=== PATIENT | male | born 1990 | race Caucasian/White ===

== ENCOUNTER 2017-02-24 20:23 | Emergency (ER) | payer BC ==
--- NOTE | 2017-02-24 21:16 | ED ---
Chest Pain HPI - General Chief Complaint: Chest Pain Stated Complaint: chest pain Time Seen by Provider: 02/24/17 21:04 Source: patient Mode of arrival: ambulatory Limitations: no limitations - History of Present Illness Initial Comments: This patient is a 19-year-old man who experienced an episode of chest pain about an hour ago while he was eating. The patient states that the substernal area he felt like a wave of pain that came and went. He states that lasted probably 2 seconds and resolved. He states the following that felt like his arms were heavy for a brief period of time but that has resolved. Patient states that he finished dinner and then cleaned up. He also recalled having a similar episode about 5 days ago and so he decided to be evaluated here. The patient states that he used to smoke but quit a number of months ago. He denied any anginal equivalent, no dyspnea, diaphoresis, nausea or vomiting, palpitations, lightheadedness, or syncope. MD Complaint: chest pain Onset/Timin -: hour(s) Onset: other Pain Location: substernal (Bleeding) Pain Radiation: none Severity: moderate Quality: other (Like a wave) Consistency: now resolved Improves With: nothing Worsens With: nothing Treatments Prior to Arrival: none - Related Data Home Medications Medication Instructions Recorded Confirmed Oxymetazoline 0.05% Nasl [place] 1 spray EA NOSTRIL DAILY PRN 02/24/17 02/24/17 [Afrin 0.05% Nasal [place]] guaiFENesin [Mucinex] 1,200 mg PO DAILY PRN 02/24/17 02/24/17 Allergies Allergy/AdvReac Type Severity Reaction Status Date / Time No Known Allergies Allergy Verified 02/24/17 20:35 Review of Systems ROS Statement: Those systems with pertinent positive or pertinent negative responses have been documented in the HPI. ROS Other: All systems not noted in ROS Statement are negative. Constitutional: Denies: fever, chills Respiratory: Reports: cough (Patient has had about 4-5 days of congestion and cough). Denies: dyspnea, hemoptysis Cardiovascular: Reports: as per HPI, chest pain. Denies: palpitations, dyspnea on exertion, syncope Gastrointestinal: Denies: abdominal pain, nausea, vomiting Genitourinary: Denies: dysuria Musculoskeletal: Denies: back pain Skin: Denies: rash Neurological: Denies: headache EKG Findings - EKG Results: EKG: interpreted by NITZAD, sinus rhythm (Rate 75 bpm), normal axis, normal ST/T Past Medical History Past Medical History: No Reported History History of Any Multi-Drug Resistant Organisms: None Reported Past Surgical History: Appendectomy Past Psychological History: No Psychological Hx Reported Smoking Status: Current some day smoker Past Alcohol Use History: None Reported Past Drug Use History: None Reported General Exam Limitations: no limitations General appearance: alert, in no apparent distress Head exam: Present: atraumatic, normocephalic Eye exam: Present: normal appearance. Absent: scleral icterus, conjunctival injection ENT exam: Present: normal oropharynx Respiratory exam: Present: normal lung sounds bilaterally. Absent: respiratory distress, wheezes, rales, rhonchi, stridor, chest wall tenderness, accessory muscle use, decreased breath sounds, prolonged expiratory Cardiovascular Exam: Present: regular rate, normal rhythm, normal heart sounds. Absent: systolic murmur, diastolic murmur, rubs, gallop GI/Abdominal exam: Present: soft. Absent: distended, tenderness, guarding, rebound, rigid, mass, pulsatile mass, hernia Extremities exam: Present: normal inspection, normal capillary refill. Absent: pedal edema, calf tenderness Back exam: Present: normal inspection. Absent: CVA tenderness (R), CVA tenderness (L) Skin exam: Present: warm, dry, intact, normal color. Absent: rash Course Vital Signs 02/24/17 02/24/17 20:27 22:01 Temperature 99 F 97.8 F Pulse Rate 98 71 Respiratory 18 16 Rate Blood Pressure 174/98 136/68 O2 Sat by Pulse 98 96 Oximetry Chest Pain [facility] patient is a 26-year-old man who had an episode of chest pain lasting 1-2 seconds earlier tonight. Chest x-ray is negative and EKG does not show any acute ischemia and the patient is symptom-free. Given that he has history of smoking, recommended the patient follow-up to have a stress test. Also discussed that he must return should any symptoms recur. Patient understands follow-up plan and return parameters. Disposition Clinical Impression: Chest pain Disposition: HOME SELF-CARE Condition: Good Instructions: Chest Pain (ED) Referrals: None,Stated [REFERRING] - 1-2 days Obdulio Shah MD [STAFF PHYSICIAN] - 1-2 days
--- NOTE | 2017-02-24 21:21 | XR ---
EXAMINATION TYPE: XR chest 2V DATE OF EXAM: 02/24/2017 COMPARISON: NONE HISTORY: Cough TECHNIQUE: Frontal and lateral views of the chest are obtained. FINDINGS: Heart and mediastinum are normal. Lungs are clear. Diaphragm is normal. Bony thorax appear s normal. IMPRESSION: Normal chest.
[2017-02-24 22:02] VITALS: BP 136/68; PULSE 71; RESP 16; TEMP 97.8
== END 2017-02-24 22:07 | disposition home or self-care (01) ==
LOC: EC 20:23
DX: R07.9 Chest pain, unspecified (principal); F17.200 Nicotine dependence, unspecified, uncomplicated
CPT/HCPCS: 71020; 93005; 99285

== ENCOUNTER 2017-04-15 16:55 | Emergency (ER) | payer BC ==
[2017-04-15] MEDS ORDERED: SODIUM CHLORIDE 0.9% 1,000 ML IV ONE (18:22)
[2017-04-15] MEDS ORDERED: MORPHINE SULFATE 5 MG/ML SYRINGE IVP STA (18:22)
[2017-04-15] MEDS ORDERED: RX INFO: IV CONTRAST WAS GIVEN 1 EACH MISC MISCELLANE PRN (18:22)
[2017-04-15 18:35] LABS: Basophils % (A) 0 %; CH 30.3; CHCM 34.4; Eosinophils % (A) 0 %; HCT 49.1 % (39.0-53.0); HDW 2.34; HGB 16.2 gm/dL (13.0-17.5); Luc # (Auto) 0.04; Luc % (Auto) 0; Lymphocytes # (A) 0.6 k/uL (1.0-4.8); Lymphocytes % (A) 6 %; MCH 29.3 pg (25.0-35.0); MCHC 33.1 g/dL (31.0-37.0); MCV 88.5 fL (80.0-100.0); Mean Platelet Volume 7.1; Monocytes # (A) 0.4 k/uL (0-1.0); Monocytes % (A) 3 %; Neutrophils # (A) 10.5 k/uL (1.3-7.7); Neutrophils % (A) 90 %; RBC 5.55 m/uL (4.30-5.90); RDW 14.2 % (11.5-15.5); WBC 11.6 k/uL (3.8-10.6); WBC (Perox) 10.83
[2017-04-15 18:36] LABS: Appearance,Urine Clear (Clear); Bilirubin,Urine Negative (Negative); Glucose,Urine (UA) Negative (Negative); Ketones,Urine Negative (Negative); Leukocyte Esterase,Urine Negative (Negative); Nitrite,Urine Negative (Negative); PH, Urine 5.5 (5.0-8.0); Protein,Urine Trace (Negative); Specific Gravity,Urine 1.028 (1.001-1.035); UA Billing (MACRO vs. MICRO) CHEM; Urobilinogen,Urine <2.0 mg/dL (<2.0)
[2017-04-15 18:47] LABS: ALT 36 U/L (21-72); AST 22 U/L (17-59); Alkaline Phosphatase 63 U/L (38-126); Anion Gap 14 mmol/L; Blood Urea Nitrogen 18 mg/dL (9-20); Calcium 9.6 mg/dL (8.4-10.2); Carbon Dioxide 28 mmol/L (22-30); Chloride 98 mmol/L (98-107); Glucose 101 mg/dL (74-99); Non-African American GFR(MDRD) >60 (>60 ml/min/1.73 sqM); Sodium 140 mmol/L (137-145); Total Bilirubin 1.7 mg/dL (0.2-1.3); Total Protein 7.9 g/dL (6.3-8.2)
[2017-04-15 18:55] LABS: Potassium 4.1 mmol/L (3.5-5.1)
--- NOTE | 2017-04-15 19:28 | CT ---
EXAMINATION TYPE: CT abdomen pelvis w con DATE OF EXAM: 04/15/2017 COMPARISON: 12/15/2011 HISTORY: Abdominal pain and vomiting. CT DLP: 655.2 mGycm. Automated exposure control for dose reduction was used. TECHNIQUE: Helical acquisition of images was performed from the lung bases through the pelvis. CONTRAST: Performed without Oral Contrast and with IV Contrast, patient injected with 100 mL of Omnip aque 300. FINDINGS: LUNG BASES: No significant abnormality is appreciated. LIVER/GB: No significant abnormality is appreciated. PANCREAS: No significant abnormality is seen. SPLEEN: No significant abnormality is seen. ADRENALS: No significant abnormality is seen. KIDNEYS: No significant abnormality is seen. Bilateral simple appearing subcentimeter renal cysts are noted. PERITONEAL SPACES: Negative for mass or fluid collections. ABDOMINAL ADENOPATHY: There is no roderick adenopathy. However, numerous subcentimeter mesenteric lymph nodes are appreciated, and the findings may correlate with a clinical diagnosis of gastroenteritis. REPRODUCTIVE ORGANS: No significant abnormality is seen URINARY BLADDER: No significant abnormality is seen. PELVIC ADENOPATHY: None visualized. OSSEOUS STRUCTURES: No significant abnormality is seen. BOWEL: There appendix currently measures 3 cm in length, at its tip is a 5 mm high attenuation focus . The caliber of the appendix is borderline distended, but the appendix is smoothly defined and the p eriappendiceal fat is normal in appearance. These are likely post operative changes from the appendic itis seen at the time of the 12/15/2011 complicated appendicitis, but clinical corroboration is reques victorino. The remainder of the hollow visceral exam of the abdomen and pelvis is negative. VASCULATURE: Unremarkable. IMPRESSION: NO DEFINITE ACUTE ABDOMINOPELVIC PROCESS. HOWEVER, SMALL BOWEL MESENTERIC SUBCENTIMETER LYMPH NODES AND APPENDICEAL STUMP FINDINGS NOTED, DI SCUSSED.
--- NOTE | 2017-04-15 19:59 | ED ---
Abdominal Pain HPI - General Chief Complaint: Abdominal Pain Stated Complaint: Abd Pain, Blood in vomit Time Seen by Provider: 04/15/17 17:40 Source: patient Mode of arrival: ambulatory Limitations: no limitations - History of Present Illness Initial Comments: 26-year-old male with past medical history of appendicitis with appendectomy presented for evaluation of epigastric abdominal pain with associated nausea and vomiting. He states that the symptoms started around 8: 30 this morning and woke him from sleep. First episode of emesis was stomach contents over the second third contained hematemesis. States he is also been having loose stool. Denies fevers, chills, chest pain, shortness of breath. - Related Data Home Medications Medication Instructions Recorded Confirmed Ibuprofen [Motrin] 400 mg PO Q6HR PRN 04/15/17 04/15/17 Previous Rx's Medication Instructions Recorded Dicyclomine [Bentyl] 20 mg PO QID #20 tablet 04/15/17 Ondansetron Odt [Zofran Odt] 4 mg PO Q8HR PRN #10 tab 04/15/17 Allergies Allergy/AdvReac Type Severity Reaction Status Date / Time No Known Allergies Allergy Verified 04/15/17 18:36 Review of Systems ROS Statement: Those systems with pertinent positive or pertinent negative responses have been documented in the HPI. ROS Other: All systems not noted in ROS Statement are negative. Constitutional: Denies: fever, chills, weakness Eyes: Denies: eye pain, eye discharge ENT: Denies: ear pain, throat pain Respiratory: Denies: cough, dyspnea Cardiovascular: Denies: chest pain, palpitations Endocrine: Denies: fatigue, polydipsia, polyuria Gastrointestinal: Reports: abdominal pain, nausea, vomiting, diarrhea. Denies: constipation, hematemesis, melena Genitourinary: Denies: urgency, dysuria Musculoskeletal: Denies: back pain, arthralgia, myalgia Skin: Denies: rash, lesions Neurological: Denies: headache, weakness Psychiatric: Denies: anxiety, depression Hematological/Lymphatic: Denies: easy bleeding, easy bruising Past Medical History Past Medical History: No Reported History History of Any Multi-Drug Resistant Organisms: None Reported Past Surgical History: Appendectomy Past Psychological History: No Psychological Hx Reported Smoking Status: Current every day smoker Past Alcohol Use History: Occasional Past Drug Use History: Cocaine, Marijuana General Exam Limitations: no limitations General appearance: alert, in no apparent distress Head exam: Present: atraumatic, normocephalic, normal inspection Eye exam: Present: normal appearance, PERRL, EOMI. Absent: scleral icterus, conjunctival injection, periorbital swelling ENT exam: Present: normal exam, mucous membranes moist Neck exam: Present: normal inspection. Absent: tenderness, meningismus, lymphadenopathy Respiratory exam: Present: normal lung sounds bilaterally. Absent: respiratory distress, wheezes, rales, rhonchi, stridor Cardiovascular Exam: Present: normal rhythm, tachycardia, normal heart sounds. Absent: systolic murmur, diastolic murmur, rubs, gallop, clicks GI/Abdominal exam: Present: soft, tenderness (mild epigastric), normal bowel sounds. Absent: distended, guarding, rebound, rigid Rectal exam: Present: deferred Extremities exam: Present: normal inspection, full ROM, normal capillary refill. Absent: tenderness, pedal edema, joint swelling, calf tenderness Back exam: Present: normal inspection Neurological exam: Present: alert, oriented X3, CN II-XII intact Psychiatric exam: Present: normal affect, normal mood Skin exam: Present: warm, dry, intact, normal color. Absent: rash Course Vital Signs 04/15/17 04/15/17 17:26 18:14 Temperature 101.4 F H Pulse Rate 101 H Respiratory 18 19 Rate Blood Pressure 135/76 O2 Sat by Pulse 98 Oximetry Medical Decision Making - Medical Decision Making 26-year-old male with past medical history as noted above presented for evaluation of abdominal pain, nausea vomiting and diarrhea. On physical examination his abdomen is soft and non-peritoneal guarding rigidity or rebound however he does have tenderness to the epigastric abdomen. There is no defect in the ventral wall noted on palpation. Remainder of his physical exam is benign. Given his past medical history of appendicitis with appendectomy which is also followed by a recurrent surgery for inflammation around the stump, we' ll obtain a CT abdomen and pelvis as well as labs and provide IV fluids pain control. CT abdomen and pelvis showed no definite acute abdominal pelvis process. There was small bowel mesenteric subcentimeter lymph nodes and appendiceal stump findings that were concerning for gastroenteritis. Labs revealed no significant abnormalities. On repeat exam the patient has resolution of all symptoms. He was informed of all results and through shared decision making it was determined that he be discharged with instructions to follow-up with his primary care physician but to return to this facility if his symptoms should worsen or persist. The patient acknowledged an understanding of all formation provided and agreed with this plan of care. - Lab Data Result diagrams: 04/15/17 17:58 04/15/17 17:58 Lab Results 04/15/17 04/15/17 04/15/17 Range/Units 17:58 17:58 17:58 WBC 11.6 H (3.8-10.6) k/uL RBC 5.55 (4.30-5.90) m/uL Hgb 16.2 (13.0-17.5) gm/dL Hct 49.1 (39.0-53.0) % MCV 88.5 (80.0-100.0) fL MCH 29.3 (25.0-35.0) pg MCHC 33.1 (31.0-37.0) g/dL RDW 14.2 (11.5-15.5) % Plt Count 190 (150-450) k/uL Neutrophils % 90 % Lymphocytes % 6 % Monocytes % 3 % Eosinophils % 0 % Basophils % 0 % Neutrophils # 10.5 H (1.3-7.7) k/uL Lymphocytes # 0.6 L (1.0-4.8) k/uL Monocytes # 0.4 (0-1.0) k/uL Eosinophils # 0.0 (0-0.7) k/uL Basophils # 0.0 (0-0.2) k/uL Sodium 140 (137-145) mmol/L Potassium 4.1 (3.5-5.1) mmol/L Chloride 98 (98-107) mmol/L Carbon Dioxide 28 (22-30) mmol/L Anion Gap 14 mmol/L BUN 18 (9-20) mg/dL Creatinine 0.80 (0.66-1.25) mg/dL Est GFR (MDRD) Af Amer >60 (>60 ml/min/1.73 sqM) Est GFR (MDRD) Non-Af >60 (>60 ml/min/1.73 sqM) Glucose 101 H (74-99) mg/dL Plasma Lactic Acid Joshua 1.9 (0.7-2.0) mmol/L Calcium 9.6 (8.4-10.2) mg/dL Total Bilirubin 1.7 H (0.2-1.3) mg/dL AST 22 (17-59) U/L ALT 36 (21-72) U/L Alkaline Phosphatase 63 (38-126) U/L Total Protein 7.9 (6.3-8.2) g/dL Albumin 4.8 (3.5-5.0) g/dL Lipase 38 (23-300) U/L Urine Color Urine Appearance (Clear) Urine pH (5.0-8.0) Ur Specific [place] (1.001-1.035) Urine Protein (Negative) Urine Glucose (UA) (Negative) Urine Ketones (Negative) Urine Blood (Negative) Urine Nitrite (Negative) Urine Bilirubin (Negative) Urine Urobilinogen (<2.0) mg/dL Ur Leukocyte Esterase (Negative) 04/15/17 Range/Units 17:58 WBC (3.8-10.6) k/uL RBC (4.30-5.90) m/uL Hgb (13.0-17.5) gm/dL Hct (39.0-53.0) % MCV (80.0-100.0) fL MCH (25.0-35.0) pg MCHC (31.0-37.0) g/dL RDW (11.5-15.5) % Plt Count (150-450) k/uL Neutrophils % % Lymphocytes % % Monocytes % % Eosinophils % % Basophils % % Neutrophils # (1.3-7.7) k/uL Lymphocytes # (1.0-4.8) k/uL Monocytes # (0-1.0) k/uL Eosinophils # (0-0.7) k/uL Basophils # (0-0.2) k/uL Sodium (137-145) mmol/L Potassium (3.5-5.1) mmol/L Chloride (98-107) mmol/L Carbon Dioxide (22-30) mmol/L Anion Gap mmol/L BUN (9-20) mg/dL Creatinine (0.66-1.25) mg/dL Est GFR (MDRD) Af Amer (>60 ml/min/1.73 sqM) Est GFR (MDRD) Non-Af (>60 ml/min/1.73 sqM) Glucose (74-99) mg/dL Plasma Lactic Acid Joshua (0.7-2.0) mmol/L Calcium (8.4-10.2) mg/dL Total Bilirubin (0.2-1.3) mg/dL AST (17-59) U/L ALT (21-72) U/L Alkaline Phosphatase (38-126) U/L Total Protein (6.3-8.2) g/dL Albumin (3.5-5.0) g/dL Lipase (23-300) U/L Urine Color Yellow Urine Appearance Clear (Clear) Urine pH 5.5 (5.0-8.0) Ur Specific [place] 1.028 (1.001-1.035) Urine Protein Trace H (Negative) Urine Glucose (UA) Negative (Negative) Urine Ketones Negative (Negative) Urine Blood Negative (Negative) Urine Nitrite Negative (Negative) Urine Bilirubin Negative (Negative) Urine Urobilinogen <2.0 (<2.0) mg/dL Ur Leukocyte Esterase Negative (Negative) Disposition Clinical Impression: Abdominal pain, Hematemesis Disposition: HOME SELF-CARE Condition: Stable Instructions: Abdominal Pain (ED) Additional Instructions: Please use medication as discussed. Please follow up with family doctor if symptoms have not improved over the next two days. Please return to the emergency room if your symptoms increase or worsen or for any other concerns. Prescriptions: Dicyclomine [Bentyl] 20 mg PO QID #20 tablet Ondansetron Odt [Zofran Odt] 4 mg PO Q8HR PRN #10 tab PRN Reason: nausea Referrals: Leroy Segovia MD [Primary Care Provider] - 1-2 days Time of Disposition: 19:59
[2017-04-15 20:42] VITALS: BP 129/67; PULSE 74; RESP 16; TEMP 99.3
== END 2017-04-15 20:40 | disposition home or self-care (01) ==
LOC: EC 16:55
DX: K92.0 Hematemesis (principal); F17.200 Nicotine dependence, unspecified, uncomplicated; Z90.49 Acquired absence of other specified parts of digestive tract
CPT/HCPCS: 36415; 80053; 83605; 83690; 85025; 81003; 74177; 99284; 96374; 96361; Q9967; J2274

== ENCOUNTER 2019-02-09 14:39 | Emergency (ER) | payer BC ==
[2019-02-09 14:43] VITALS: RESP 20
[2019-02-09] MEDS ORDERED: SODIUM CHLORIDE 0.9% 1,000 ML IV STA (15:17)
[2019-02-09 15:58] LABS: ALT 22 U/L (21-72); AST 26 U/L (17-59); African American GFR (CKD) >90 (>60 ml/min/1.73 sqM); Albumin 4.9 g/dL (3.5-5.0); Alkaline Phosphatase 60 U/L (38-126); Anion Gap 10 mmol/L; Blood Urea Nitrogen 12 mg/dL (9-20); Calcium 9.8 mg/dL (8.4-10.2); Carbon Dioxide 26 mmol/L (22-30); Chloride 104 mmol/L (98-107); Glucose 91 mg/dL (74-99); Potassium 4.2 mmol/L (3.5-5.1); Sodium 140 mmol/L (137-145); Total Bilirubin 1.2 mg/dL (0.2-1.3); Total Protein 8.2 g/dL (6.3-8.2)
[2019-02-09 16:14] LABS: Basophils % (A) 1 %; Eosinophils # (A) 0.1 k/uL (0-0.7); Eosinophils % (A) 1 %; HGB 14.7 gm/dL (13.0-17.5); Lymphocytes # (A) 1.9 k/uL (1.0-4.8); Lymphocytes % (A) 26 %; MCH 28.3 pg (25.0-35.0); MCV 88.5 fL (80.0-100.0); Mean Platelet Volume 6.3; Monocytes # (A) 0.3 k/uL (0-1.0); Monocytes % (A) 4 %; Neutrophils # (A) 4.8 k/uL (1.3-7.7); Neutrophils % (A) 67 %; Platelet Count 216 k/uL (150-450); RBC 5.19 m/uL (4.30-5.90); RDW 12.4 % (11.5-15.5); WBC 7.2 k/uL (3.8-10.6)
[2019-02-09 16:18] LABS: Appearance,Urine Clear (Clear); Bilirubin,Urine Negative (Negative); Blood,Urine Negative (Negative); Color,Urine Light Yellow; Glucose,Urine (UA) Negative (Negative); Ketones,Urine Negative (Negative); Leukocyte Esterase,Urine Negative (Negative); Nitrite,Urine Negative (Negative); Protein,Urine Negative (Negative); Specific Gravity,Urine 1.013 (1.001-1.035); Urobilinogen,Urine <2.0 mg/dL (<2.0)
--- NOTE | 2019-02-09 16:21 | CT ---
EXAMINATION TYPE: CT abdomen pelvis w con DATE OF EXAM: 02/09/2019 COMPARISON: 04/15/2017 INDICATION: LLQ pain DLP: 1096.4 mGycm, Automated exposure control for dose reduction was used. CONTRAST: 100 mL of Isovue 300. Study performed without Oral Contrast TECHNIQUE: Axial images were obtained from above the diaphragm to the pubic rami in the axial plane a t 5 mm thick sections. Reconstructed images are reviewed on the computer in the coronal plane. FINDINGS: Limited CT sections are obtained the lung bases. The lung bases are clear. CT ABDOMEN: Liver: Normal Spleen: Normal Pancreas: Normal Adrenal glands: The adrenal glands are normal. Gallbladder: Normal Kidneys: No masses are evident. No hydronephrosis is present. No cysts are present. Delayed images were obtained through the kidneys, which remain unremarkable. Aorta: Normal Inferior vena cava: Normal. CT PELVIS: Loops of bowel within the abdomen and pelvis are normal. Study is performed without oral contrast limiting bowel evaluation. No suspicious diverticulosis or acute diverticulitis is evident. No obvio us colonic wall thickening is evident. Appendix: What appears to be the appendix has a normal caliber and may contain an appendicolith at th e distal aspect. Urinary bladder: Decompressed and cannot be evaluated Genitourinary structures: Prostate contains some minimal calcification. Osseous structures: No suspicious lytic or sclerotic lesions. IMPRESSIONS: 1. No suspicious abnormality to account for left lower quadrant pain
[2019-02-09 16:44] VITALS: BP 142/89; PULSE 63; TEMP 98.1
--- NOTE | 2019-02-09 17:57 | ED ---
Abdominal Pain HPI - General Chief Complaint: Abdominal Pain Stated Complaint: abd pain Time Seen by Provider: 02/09/19 14:45 Source: patient Mode of arrival: ambulatory Limitations: no limitations - History of Present Illness Initial Comments: The patient is a 28-year-old male who presents emergency room with complaint of left lower quadrant pain. Reports a history of similar in the past. States that he had appendicitis several years ago. His appendix was removed at our facility. States that a year later he ended up having left lower quadrant pain. He was diagnosed with a periappendiceal abscess. He required a drain at that time. States that it was removed and he never followed up. He's also been told that he had diverticulosis however has never had a flare of diverticulitis. He denies any fevers or chills. Admits to nausea without vomiting. Denies any urinary changes to include dysuria, hematuria or difficulty voiding. Denies any changes in bowel movements including diarrhea, constipation, melanotic stools or hematochezia. Denies any back or flank pain. No abdominal trauma. There are no other alleviating, precipitating or modifying factors - Related Data Home Medications Medication Instructions Recorded Confirmed Ibuprofen [Motrin] 800 mg PO TID PRN 04/15/17 02/09/19 Allergies Allergy/AdvReac Type Severity Reaction Status Date / Time No Known Allergies Allergy Verified 02/09/19 15:02 Review of Systems ROS Statement: Those systems with pertinent positive or pertinent negative responses have been documented in the HPI. ROS Other: All systems not noted in ROS Statement are negative. Past Medical History Past Medical History: No Reported History Additional Past Medical History / Comment(s): Appendicitis History of Any Multi-Drug Resistant Organisms: None Reported Past Surgical History: Appendectomy Past Psychological History: No Psychological Hx Reported Smoking Status: Current every day smoker Past Alcohol Use History: Occasional Past Drug Use History: Cocaine, Marijuana General Exam Limitations: no limitations General appearance: alert, in no apparent distress Head exam: Present: atraumatic, normocephalic, normal inspection Eye exam: Present: normal appearance, PERRL, EOMI. Absent: scleral icterus, conjunctival injection, periorbital swelling ENT exam: Present: normal exam, mucous membranes moist Neck exam: Present: normal inspection. Absent: tenderness, meningismus, lympha denopathy Respiratory exam: Present: normal lung sounds bilaterally. Absent: respiratory distress, wheezes, rales, rhonchi, stridor Cardiovascular Exam: Present: regular rate, normal rhythm, normal heart sounds. Absent: systolic murmur, diastolic murmur, rubs, gallop, clicks GI/Abdominal exam: Present: soft, tenderness (LLQ), normal bowel sounds. Absent: distended, guarding, rebound, rigid Extremities exam: Present: normal inspection, full ROM, normal capillary refill. Absent: tenderness, pedal edema, joint swelling, calf tenderness Back exam: Present: normal inspection Neurological exam: Present: alert, oriented X3, CN II-XII intact Psychiatric exam: Present: normal affect, normal mood Skin exam: Present: warm, dry, intact, normal color. Absent: rash Course Vital Signs 02/09/19 02/09/19 02/09/19 14:41 14:43 15:43 Temperature 98.8 F Pulse Rate 68 Respiratory 20 20 20 Rate Blood Pressure 133/82 O2 Sat by Pulse 99 Oximetry 02/09/19 02/09/19 16:00 16:43 Temperature 98.1 F Pulse Rate 63 Respiratory 20 20 Rate Blood Pressure 142/89 O2 Sat by Pulse 100 Oximetry Medical Decision Making - Medical Decision Making Upon arrival the patient is placed in room 21. A thorough history and physical exam was performed. I did recommend laboratory studies and a CT the patient's abdomen and pelvis because of this large history of abdominal infections. Patient agreed to this. Peripheral IV was obtained. He is given a liter bolus of normal saline. He is refusing nausea medications and pain medications. Laboratory studies returned return unremarkable. CT exam is demonstrating no acute intra-abdominal findings. The patient does have a portion of the appendix it is still present has a possible appendicolith. I called and discussed the case with the on-call radiologist, Dr. Giles. He is stating that there is appendiceal stump however he believes that it is stable at the tip of the appendix. No concerning signs for infection. No changes in the left lower quadrant. I asked the results with the patient. He is unsure who his surgeon was. Patient's girlfriend is requesting follow-up Dr. Pappas. I will provide him with information. The patient is a new or worsening symptoms she should return to the emergency room. He continues to refuse antiemetics and pain medications on discharge. He is given a work note. Patient was discharged home in stable condition - Lab Data Result diagrams: 02/09/19 15:35 02/09/19 15:35 Lab Results 02/09/19 02/09/19 02/09/19 Range/Units 15:35 15:35 15:35 WBC 7.2 (3.8-10.6) k/uL RBC 5.19 (4.30-5.90) m/uL Hgb 14.7 (13.0-17.5) gm/dL Hct 46.0 (39.0-53.0) % MCV 88.5 (80.0-100.0) fL MCH 28.3 (25.0-35.0) pg MCHC 32.0 (31.0-37.0) g/dL RDW 12.4 (11.5-15.5) % Plt Count 216 (150-450) k/uL Neutrophils % 67 % Lymphocytes % 26 % Monocytes % 4 % Eosinophils % 1 % Basophils % 1 % Neutrophils # 4.8 (1.3-7.7) k/uL Lymphocytes # 1.9 (1.0-4.8) k/uL Monocytes # 0.3 (0-1.0) k/uL Eosinophils # 0.1 (0-0.7) k/uL Basophils # 0.0 (0-0.2) k/uL Sodium 140 (137-145) mmol/L Potassium 4.2 (3.5-5.1) mmol/L Chloride 104 (98-107) mmol/L Carbon Dioxide 26 (22-30) mmol/L Anion Gap 10 mmol/L BUN 12 (9-20) mg/dL Creatinine 0.91 (0.66-1.25) mg/dL Est GFR (CKD-EPI)AfAm >90 (>60 ml/min/1.73 sqM) Est GFR (CKD-EPI)NonAf >90 (>60 ml/min/1.73 sqM) Glucose 91 (74-99) mg/dL Plasma Lactic Acid Joshua 1.0 (0.7-2.0) mmol/L Calcium 9.8 (8.4-10.2) mg/dL Total Bilirubin 1.2 (0.2-1.3) mg/dL AST 26 (17-59) U/L ALT 22 (21-72) U/L Alkaline Phosphatase 60 (38-126) U/L Total Protein 8.2 (6.3-8.2) g/dL Albumin 4.9 (3.5-5.0) g/dL Lipase 44 (23-300) U/L Urine Color Urine Appearance (Clear) Urine pH (5.0-8.0) Ur Specific [place] (1.001-1.035) Urine Protein (Negative) Urine Glucose (UA) (Negative) Urine Ketones (Negative) Urine Blood (Negative) Urine Nitrite (Negative) Urine Bilirubin (Negative) Urine Urobilinogen (<2.0) mg/dL Ur Leukocyte Esterase (Negative) 02/09/19 Range/Units 16:10 WBC (3.8-10.6) k/uL RBC (4.30-5.90) m/uL Hgb (13.0-17.5) gm/dL Hct (39.0-53.0) % MCV (80.0-100.0) fL MCH (25.0-35.0) pg MCHC (31.0-37.0) g/dL RDW (11.5-15.5) % Plt Count (150-450) k/uL Neutrophils % % Lymphocytes % % Monocytes % % Eosinophils % % Basophils % % Neutrophils # (1.3-7.7) k/uL Lymphocytes # (1.0-4.8) k/uL Monocytes # (0-1.0) k/uL Eosinophils # (0-0.7) k/uL Basophils # (0-0.2) k/uL Sodium (137-145) mmol/L Potassium (3.5-5.1) mmol/L Chloride (98-107) mmol/L Carbon Dioxide (22-30) mmol/L Anion Gap mmol/L BUN (9-20) mg/dL Creatinine (0.66-1.25) mg/dL Est GFR (CKD-EPI)AfAm (>60 ml/min/1.73 sqM) Est GFR (CKD-EPI)NonAf (>60 ml/min/1.73 sqM) Glucose (74-99) mg/dL Plasma Lactic Acid Joshua (0.7-2.0) mmol/L Calcium (8.4-10.2) mg/dL Total Bilirubin (0.2-1.3) mg/dL AST (17-59) U/L ALT (21-72) U/L Alkaline Phosphatase (38-126) U/L Total Protein (6.3-8.2) g/dL Albumin (3.5-5.0) g/dL Lipase (23-300) U/L Urine Color Light Yellow Urine Appearance Clear (Clear) Urine pH 6.0 (5.0-8.0) Ur Specific [place] 1.013 (1.001-1.035) Urine Protein Negative (Negative) Urine Glucose (UA) Negative (Negative) Urine Ketones Negative (Negative) Urine Blood Negative (Negative) Urine Nitrite Negative (Negative) Urine Bilirubin Negative (Negative) Urine Urobilinogen <2.0 (<2.0) mg/dL Ur Leukocyte Esterase Negative (Negative) Disposition Clinical Impression: Abdominal pain Disposition: HOME SELF-CARE Condition: Stable Instructions (If sedation given, give patient instructions): Abdominal Pain (ED) Additional Instructions: Please follow up with your PCP in 2-4 days. Return to the ED for any new or worsening symptoms. Is patient prescribed a controlled substance at d/c from ED?: No Referrals: Leroy Segovia MD [Primary Care Provider] - 1-2 days Jordy Pappas MD [Medical Doctor] - 1-2 days Time of Disposition: 17:46
== END 2019-02-09 18:06 | disposition home or self-care (01) ==
LOC: EC 14:39
DX: R10.32 Left lower quadrant pain (principal); R11.0 Nausea; F17.200 Nicotine dependence, unspecified, uncomplicated; Z87.19 Personal history of other diseases of the digestive system; Z90.49 Acquired absence of other specified parts of digestive tract; Z53.29 Procedure and treatment not carried out because of patient's decision for other reasons
CPT/HCPCS: 36415; 80053; 83605; 83690; 85025; 81003; 74177; 99284; 96360; Q9967

== ENCOUNTER → 2019-07-05 | Outpatient (CLI) | payer OTHER ==
--- NOTE | 2019-07-05 16:43 | XR ---
EXAMINATION TYPE: XR elbow complete RT DATE OF EXAM: 07/05/2019 COMPARISON: NONE HISTORY: Pain TECHNIQUE: 3 views FINDINGS: There is a 5 mm nondisplaced chip fracture of the coronoid process of the ulna on the later al view. There is no definite joint effusion. Joint spaces are fairly normal. IMPRESSION: Nondisplaced acute chip fracture of the tip of the coronoid process.
--- NOTE | 2019-07-05 16:45 | XR ---
EXAMINATION TYPE: XR femur RT DATE OF EXAM: 07/05/2019 COMPARISON: NONE HISTORY: Pain TECHNIQUE: 4 views FINDINGS: Hip joint and knee joint appear intact. I see no fracture nor dislocation. Soft tissues teodoro ear normal. IMPRESSION: Negative right femur exam.
--- NOTE | 2019-07-05 16:46 | XR ---
EXAMINATION TYPE: XR Hip Complete RT DATE OF EXAM: 07/05/2019 COMPARISON: NONE HISTORY: Pain TECHNIQUE: 2 views FINDINGS: AP and frog-leg views show no fracture nor dislocation. Joint spaces are normal. There are no pathologic calcifications. IMPRESSION: Negative right hip exam.
--- NOTE | 2019-07-05 16:47 | XR ---
EXAMINATION TYPE: XR knee complete LT DATE OF EXAM: 07/05/2019 COMPARISON: NONE HISTORY: Knee pain TECHNIQUE: 3 views FINDINGS: There is no fracture nor dislocation. Joint spaces are normal. There are no pathologic calc ifications. There is no sign of joint effusion. IMPRESSION: Normal left knee exam.
== END | disposition home or self-care (01) ==
LOC: RADXRMAIN 16:06
PROVIDERS: ATTEND Emergency Medicine
DX: S42.134A Nondisplaced fracture of coracoid process, right shoulder, initial encounter for closed fracture (principal); S70.11XA Contusion of right thigh, initial encounter; S80.02XA Contusion of left knee, initial encounter
CPT/HCPCS: 73502

== ENCOUNTER 2019-08-21 16:31 | Emergency (ER) | payer BC ==
[2019-08-21 16:39] VITALS: BP 159/89; TEMP 98.6
[2019-08-21] MEDS ORDERED: NAPROXEN 250 MG TAB PO STA ×2 (17:34→18:08)
[2019-08-21] MEDS ORDERED: CYCLOBENZAPRINE 10MG STARTER 3 TAB BTL PO STA (17:34)
[2019-08-21] MEDS ORDERED: methylPREDNISolone SOD SUCCI 125 MG/2 ML VIAL IM ONE (17:34)
--- NOTE | 2019-08-21 17:36 | ED ---
Back Pain HPI - General Source: patient Limitations: no limitations <Katherine Melgoza - Last Filed: 08/21/19 18:03> <Mami Frias - Last Filed: 08/23/19 03:20> - General Chief Complaint: Back Pain/Injury Stated Complaint: leg & back pain Time Seen by Provider: 08/21/19 17:01 - History of Present Illness Initial Comments: 29-year-old male patient presents to the emergency department today for evaluation of low back pain and pain radiating down the right leg. Patient states has been having symptoms since Wednesday. States the symptoms have gradually worsened. States this started with the pain to the right hip there is radiating down the back of his leg to his knee. States he did have some tingling in his calf over the weekend. Patient states that today he is having some pain to the left low back and continues to have radiating pain down the back of the right leg. States he has tried taking motrin a couple of times and it did help symptoms mildly. He denies any injury to the back. He denies any numbness or tingling to his feet. Denies any saddle anesthesia or loss of bowel or bladder control. Denies any fever or history of IV drug use. Denies any abdominal pain, hematuria, dysuria, urinary frequency, urinary urgency. Patient states he does have a history of chronic low back pain but has never had radiating pain. Patient denies any recent rash, cough, shortness of breath, chest pain, nausea, vomiting, diarrhea, constipation, dizziness, weakness, headache, visual changes, or any other complaints. (Katherine Melgoza) - Related Data Home Medications Medication Instructions Recorded Confirmed Ibuprofen [Motrin] 800 mg PO TID PRN 04/15/17 02/09/19 Previous Rx's Medication Instructions Recorded Cyclobenzaprine [Flexeril] 10 mg PO TID #15 tab 08/21/19 Naproxen [EC-Naprosyn] 500 mg PO BID PRN #30 tablet. 08/21/19 methylPREDNISolone [Medrol Dose 4 mg PO DIRECTED #1 pack 08/21/19 Pack] Allergies Allergy/AdvReac Type Severity Reaction Status Date / Time No Known Allergies Allergy Verified 08/21/19 16:39 Review of Systems ROS Other: All systems not noted in ROS Statement are negative. <Katherine Melgoza - Last Filed: 08/21/19 18:03> ROS Other: All systems not noted in ROS Statement are negative. <Mami Frias - Last Filed: 08/23/19 03:20> ROS Statement: Those systems with pertinent positive or pertinent negative responses have been documented in the HPI. Past Medical History Past Medical History: No Reported History Additional Past Medical History / Comment(s): Appendicitis History of Any Multi-Drug Resistant Organisms: None Reported Past Surgical History: Appendectomy Past Psychological History: No Psychological Hx Reported Smoking Status: Former smoker Past Alcohol Use History: Occasional Past Drug Use History: Cocaine, Marijuana <Katherine Melgoza - Last Filed: 08/21/19 18:03> General Exam Limitations: no limitations General appearance: alert, in no apparent distress, other (This is a well- developed, well-nourished adult male patient in no acute distress. Vital signs upon presentation are temperature 98.6F, pulse 79, respirations 20, blood pressure 159/89, pulse ox 100% on room air.) Eye exam: Present: normal appearance, PERRL, EOMI. Absent: scleral icterus, conjunctival injection, periorbital swelling ENT exam: Present: normal exam, normal oropharynx, mucous membranes moist Respiratory exam: Present: normal lung sounds bilaterally. Absent: respiratory distress, wheezes, rales, rhonchi, stridor Cardiovascular Exam: Present: regular rate, normal rhythm, normal heart sounds. Absent: systolic murmur, diastolic murmur, rubs, gallop, clicks GI/Abdominal exam: Present: soft, normal bowel sounds. Absent: distended, tenderness, guarding, rebound, rigid Extremities exam: Present: normal inspection, full ROM, normal capillary refill, other (Skin to the lower extremities is pink, warm, dry. Cap refills less than 3 seconds. Pedal and posttibial pulses are 2+ and equal bilaterally.). Absent: tenderness, pedal edema, joint swelling, calf tenderness Back exam: Present: normal inspection. Absent: paraspinal tenderness, vertebral tenderness Neurological exam: Present: alert, oriented X3, CN II-XII intact, other (Strength to the lower extremities is 5/5. Patient exhibits appropriate plantar and dorsiflexion.) Psychiatric exam: Present: normal affect, normal mood Skin exam: Present: warm, dry, intact, normal color. Absent: rash <Katherine Melgoza - Last Filed: 08/21/19 18:03> Course Vital Signs 08/21/19 08/21/19 16:36 18:15 Temperature 98.6 F Pulse Rate 79 70 Respiratory 20 16 Rate Blood Pressure 159/89 O2 Sat by Pulse 100 99 Oximetry Medical Decision Making <Katherine Melgoza - Last Filed: 08/21/19 18:03> <Mami Frias - Last Filed: 08/23/19 03:20> - Medical Decision Making 29-year-old male patient presents to the emergency department today for evaluation of low back pain with radiation down the right leg. Physical examination reveals no spinal tenderness or paraspinal tenderness. He is neurologically intact with no focal deficits. He has no concerning symptoms for cauda equina. Patient symptoms are consistent with mechanical low back pain and sciatica. We will treat with Medrol Dosepak, anti-inflammatories, and muscle relaxer. He is instructed to apply warm moist heat, perform gentle range of motion, and remain active. He is instructed to follow-up with his primary care physician for recheck in 1-2 days. He will be given 2 days off of work. Return parameters were discussed in detail. He verbalizes understanding and agrees with this plan. (Katherine Melgoza) I was available for consultation in the emergency department. The history and physical exam were done by the midlevel provider. I was consulted for this patients care. I reviewed the case with the midlevel provider and based on their presentation of the patient, I agree with the assessment, medical decision making and plan of care as documented. Chart was dictated using [employer] dictation software. Attempts were made to correct any dictation errors however some typographical errors may persist. Patient was seen during a national state of emergency due to the Covid-19 pandemic. (Mami Frias) Disposition Is patient prescribed a controlled substance at d/c from ED?: No Time of Disposition: 17:36 <Katherine Melgoza - Last Filed: 08/21/19 18:03> <Mami Frias - Last Filed: 08/23/19 03:20> Clinical Impression: Sciatica Disposition: HOME SELF-CARE Condition: Good Instructions (If sedation given, give patient instructions): Sciatica (ED), Acute Low Back Pain (ED) Additional Instructions: Perform gentle range of motion exercises. Walk around at least once an hour to prevent increased pain from prolonged sitting or standing. Take medications as directed. Apply warm moist heat to the low back at least 20 minutes at a time several times per day. Follow-up with your primary care physician for recheck in 1-2 days. Return to the emergency department immediately for any new, worsening, or concerning symptoms. Prescriptions: Naproxen [EC-Naprosyn] 500 mg PO BID PRN #30 tablet. PRN Reason: Pain Cyclobenzaprine [Flexeril] 10 mg PO TID #15 tab methylPREDNISolone [Medrol Dose Pack] 4 mg PO DIRECTED #1 pack Referrals: Leroy Segovia MD [Primary Care Provider] - 1-2 days
[2019-08-21 18:15] VITALS: PULSE 70; RESP 16
== END 2019-08-21 18:15 | disposition home or self-care (01) ==
LOC: EC 16:31
DX: M54.41 Lumbago with sciatica, right side (principal); Z87.891 Personal history of nicotine dependence
CPT/HCPCS: 99283; 96372; J2930

== ENCOUNTER → 2021-05-01 | Outpatient (CLI) | payer BC | END | disposition home or self-care (01) | LOC: LABWHC1 15:58 | PROVIDERS: ATTEND Nurse Practitioner Family | DX: U07.1 COVID-19 (principal); J32.9 Chronic sinusitis, unspecified | CPT/HCPCS: 87635 ==

== ENCOUNTER → 2022-09-01 | Outpatient (CLI) | payer BC ==
--- NOTE | 2022-09-02 07:25 | XR ---
EXAMINATION TYPE: XR scapula RT DATE OF EXAM: 09/01/2022 4:53 PM INDICATION: Patient age:Male; 32 years old; Reason for study: M25.51; COMPARISON: None TECHNIQUE: The right shoulder was examined in AP, internally rotated and scapular Y projections. FINDINGS: No evidence of acute osseous pathology, joint dislocation, or soft tissue swelling. The remaining por tions of the visualized chest are unremarkable. IMPRESSION: No acute osseous pathology.
--- NOTE | 2022-09-02 07:26 | XR ---
EXAMINATION TYPE: XR thoracic spine 2V DATE OF EXAM: 09/01/2022 4:54 PM INDICATION: Patient age:Male; 32 years old; Reason for study: M54.50; COMPARISON: None TECHNIQUE: 2 views of the thoracic spine in Frontal and lateral projections. FINDINGS: No evidence of acute fracture. There is no evidence loss of vertebral body height. There is normal a lignment of the thoracic vertebral bodies. Minimal mid to lower thoracic scoliosis apex T8 left. Mild osteophyte formation with disc space narrowing throughout the spine. IMPRESSION: 1. No acute osseous pathology. 2. Mild disc degeneration changes. 3. Minimal scoliosis apex T8 on the left.
== END | disposition home or self-care (01) ==
LOC: RADXRMAIN 16:26
PROVIDERS: ATTEND Nurse Practitioner Family
DX: M51.34 Other intervertebral disc degeneration, thoracic region (principal); M25.511 Pain in right shoulder
CPT/HCPCS: 72070